=== PATIENT | female | born 1955 | race Caucasian/White ===

== ENCOUNTER → 2021-12-30 | Outpatient (CLI) | payer MEDICARE | LOC: COL.RAD 10:39 | DX: E04.2 Nontoxic multinodular goiter (principal) ==

== ENCOUNTER 2022-02-26 09:15 | Outpatient (RCR) | payer MEDICARE | END 2022-03-05 | disposition still patient (30) | LOC: WSPT | DX: M54.50 Low back pain, unspecified (principal) ==

== ENCOUNTER 2022-03-17 10:30 | Outpatient (RCR) | payer MEDICARE | END 2022-04-05 | disposition home or self-care (01) | LOC: WSPT | DX: D47.2 Monoclonal gammopathy (principal) ==

== ENCOUNTER → 2022-11-05 | Outpatient (CLI) | payer MEDICARE | LOC: MHCPAIN 10-08 10:20 | DX: M47.817 Spondylosis without myelopathy or radiculopathy, lumbosacral region (principal); M54.50 Low back pain, unspecified ==